=== PATIENT | male | born 1965 | race African-American/Black ===

== ENCOUNTER 2023-10-19 09:35 | Emergency (ER) | payer OTHER ==
[~2023-10-19] VITALS: Ht 188 cm; Wt 81.6 kg
[~2023-10-19 09:35] MED LIST: AMLO-213 PO
[2023-10-19 10:08] VITALS: BP 134/86; TEMP 98.2; O2SAT 98
[2023-10-19] MEDS ORDERED: AMLO-213 PO (10:48)
== END 2023-10-19 11:06 | disposition home or self-care (01) ==
LOC: ER 09:35
DX: I10 Essential (primary) hypertension (principal); Z76.0 Encounter for issue of repeat prescription; Z60.2 Problems related to living alone